=== PATIENT | female | born 1990 | race Caucasian/White ===

== ENCOUNTER 2017-05-07 10:21 | Emergency (ER) | payer OTHER ==
[~2017-05-07] VITALS: Ht 162.6 cm; Wt 88.0 kg
[~2017-05-07 10:21] MED LIST: NO HOME MEDS; ULTRAM50 M1 PO
[2017-05-07 10:38] VITALS: BP 125/82
== END 2017-05-07 10:58 | disposition left against medical advice (07) | DRG 951 ==
LOC: ED 10:21 → LWOBS 10:58
DX: Z91.19 Patient's noncompliance with other medical treatment and regimen (principal)

== ENCOUNTER 2017-12-13 21:48 | Emergency (ER) | payer SELFPAY ==
[~2017-12-13] VITALS: Ht 162.6 cm; Wt 91.0 kg
[2017-12-13 22:49] LABS: URINE BILIRUBIN - DIPSTICK NEGATIVE (NEGATIVE); URINE BLOOD DIPSTICK LARGE (NEGATIVE); URINE COLOR YELLOW; URINE GLUCOSE - DIPSTICK NEGATIVE (NEGATIVE); URINE KETONE NEGATIVE (NEGATIVE); URINE NITRITE - DIPSTICK NEGATIVE (Negative); URINE PH 6.5 (4.5-8.0); URINE PROTEIN - DIPSTICK NEGATIVE (NEG-TRACE); URINE SPECIFIC GRAVITY <=1.005; URINE UROBILINOGEN - DIPSTICK 0.2 E.U./dL (0.2)
[2017-12-13 22:50] LABS: URINE CLARITY HAZY; URINE LEUK ESTERASE SMALL (NEGATIVE)
[2017-12-13 23:08] LABS: URINE BACTERIA FEW hpf; URINE SQUAMOUS EPITHELIAL CELL RARE EPI/hpf (0-FEW); URINE TRANSITIONAL EPI. CELLS FEW hpf
[2017-12-13] MEDS ORDERED: MACRODANTIN100 MG PO (23:13)
[2017-12-13 23:41] VITALS: BP 135/83
== END 2017-12-13 23:35 | disposition home or self-care (01) | DRG 690 ==
LOC: ED 21:48
PROVIDERS: Family Medicine
DX: N30.00 Acute cystitis without hematuria (principal); B96.20 Unspecified Escherichia coli [E. coli] as the cause of diseases classified elsewhere

== ENCOUNTER 2019-07-01 08:18 | Emergency (ER) | payer MEDICAID ==
[~2019-07-01] VITALS: Ht 162.6 cm; Wt 91.0 kg
[~2019-07-01 08:18] MED LIST changes: +MACRODANTIN100 MG PO
[2019-07-01] MEDS ORDERED: ORTHO TRI-CYCLEN LO PO (09:37)
[2019-07-01] MEDS ORDERED: ZITHROMAX250 MG PO (10:19)
[2019-07-01] MEDS ORDERED: TAM75CAP PO (10:19)
[2019-07-01 10:37] VITALS: BP 129/83
== END 2019-07-01 10:37 | disposition home or self-care (01) ==
LOC: ED 08:18
DX: J11.1 Influenza due to unidentified influenza virus with other respiratory manifestations (principal); Z20.89 Contact with and (suspected) exposure to other communicable diseases

== ENCOUNTER 2020-08-09 20:54 | Emergency (ER) | payer OTHER ==
[~2020-08-09] VITALS: Ht 162.6 cm; Wt 94.0 kg
[~2020-08-09 20:54] MED LIST changes: +ORTHO TRI-CYCLEN LO PO; +TAM75CAP PO; +ZITHROMAX250 MG PO
[2020-08-09] MEDS ORDERED: TOPAMAX100 MG PO (21:15)
[2020-08-09] MEDS ORDERED: BACTRIM DS1 TAB PO (21:50)
[2020-08-09] MEDS ORDERED: BENADRYL 50MG C50 MG PO (21:50)
[2020-08-09] MEDS ORDERED: BENADRY2 EX (21:50)
[2020-08-09 22:00] VITALS: BP 145/82
== END 2020-08-09 22:07 | disposition home or self-care (01) ==
LOC: ED 20:54
DX: S70.362A Insect bite (nonvenomous), left thigh, initial encounter (principal); W57.XXXA Bitten or stung by nonvenomous insect and other nonvenomous arthropods, initial encounter